=== PATIENT | female | born 1960 | race African-American/Black ===

== ENCOUNTER → 2017-09-29 | Outpatient (CLI) | payer OTHER ==
[~2017-09-29] MED LIST: FERROUS SU325 MG/TAB PO; FOLIC ACID 40400 MCG PO; MOBIC 7.5MG7.5 MG; NEURONTIN100 MG/CAP; PERCOCET 325 MG1 TA2; ROBAXIN 50500 MG/TAB; SINEQUAN 1100 MG/CAP; STOOL SOFTENER100 M2; VITAMIN C PURE500 MG PO
== END ==
LOC: COL.RAD 13:23
DX: M19.011 Primary osteoarthritis, right shoulder (principal)
CPT/HCPCS: J3301; Q9967